=== PATIENT | female | born 1985 | race African-American/Black ===

== ENCOUNTER 2019-05-20 15:33 | Emergency (ER) | payer MEDICAID, OTHER ==
[2019-05-20 16:00] VITALS: BP 115/67
== END 2019-05-20 18:10 | disposition home or self-care (01) ==
LOC: ER 15:33
DX: F10.229 Alcohol dependence with intoxication, unspecified (principal); F19.10 Other psychoactive substance abuse, uncomplicated; Z98.890 Other specified postprocedural states; Z87.19 Personal history of other diseases of the digestive system; Y90.9 Presence of alcohol in blood, level not specified
CPT/HCPCS: 99283